=== PATIENT | female | born 2000 | race Two or more races ===

== ENCOUNTER 2022-09-19 19:53 | Emergency (ER) | payer SELFPAY ==
[~2022-09-19] VITALS: Ht 160 cm; Wt 77.1 kg
[2022-09-19] MEDS ORDERED: OXCARBAZEPINE300 MG PO (20:58)
[2022-09-19] MEDS ORDERED: IBUPROFEN200 MG PO (20:58)
== END 2022-09-19 21:15 | disposition home or self-care (01) ==
LOC: FSED 20:00
DX: T39.1X1A Poisoning by 4-Aminophenol derivatives, accidental (unintentional), initial encounter (principal); G50.0 Trigeminal neuralgia
CPT/HCPCS: 99282

== ENCOUNTER 2022-09-29 08:55 | Emergency (ER) | payer SELFPAY ==
[~2022-09-29] VITALS: Ht 160 cm; Wt 77.1 kg
[~2022-09-29 08:55] MED LIST: IBUPROFEN200 MG PO; OXCARBAZEPINE300 MG PO
== END 2022-09-29 10:00 | disposition left against medical advice (07) ==
LOC: FSED 09:29
DX: R45.851 Suicidal ideations (principal); G50.0 Trigeminal neuralgia
CPT/HCPCS: 99284